=== PATIENT | female | born 1975 | race Caucasian/White ===

== ENCOUNTER 2017-03-01 18:25 | Emergency (ER) | payer OTHER ==
--- NOTE | 2017-03-01 18:48 | ERNOTE ---
Lower Extremity HPI - Narrative Date of Service: 03/01/17 - General Lower Extremities Pain: foot: right, 2nd toe: right, 3rd toe: right, 4th toe: right, 5th toe: right Time Seen by Provider: 03/01/17 18:39 Source: patient Exam Limitations: no limitations - Immun/Allergies/Home Medications Immunizations: IMMUNIZATION HX Immunizations Up to Date Yes History of Influenza Vaccine No Hx Pneumococcal Vaccination No Allergies/Adverse Reactions: Allergies Allergy/AdvReac Type Severity Reaction Status Date / Time No Known Allergies Allergy Verified 03/01/17 18:36 Home Medications: HOME MEDICATIONS Fluticasone Propionate [Flonase] 1 spray NS DAILY 03/01/17 [Last Taken Unknown] - History of Present Illness Narrative: 41-year-old female presents to the emergency room for right foot pain. Patient states that she was at work yesterday when she was sitting down with her legs crossed. Patient states that when she augustin she started to have pain in the ball of her right foot at the base where her toes are. Patient states that she has not taken anything for pain she did work 5 hours today standing. She states that the foot is more swollen and painful when she does step off. She' ll states that there is any increased bruising around the base of her toes. Date (Duration): 03/01/17 Occurred: yesterday Location of Incident: home Method of Injury: Reports: no apparent injury Loss of Consciousness: Reports: no loss of consciousness Modifying Factors - (Improves): Reports: immobilization, rest Modifying Factors - (Worsens): Reports: movement Associated Symptoms: Reports: unable to bear weight Other Injuries: Reports: none Subsequent Symptoms: Denies: sensory loss, numbness, motor loss Review of Systems - Review of Systems Constitutional: Present: no symptoms reported EYE: Present: no symptoms reported ENT: Present: no symptoms reported Respiratory: Present: no symptoms reported Cardiology: Present: no symptoms reported Gastrointestinal/Abdominal: Present: no symptoms reported Genitourinary: Present: no symptoms reported Musculoskeletal: Present: See HPI, joint pain, joint swelling Skin: Present: See HPI, change in color Neurological: Present: no symptoms reported Endocrine: Present: no symptoms reported Hematologic/Lymphatic: Present: no symptoms reported Psych: Present: no symptoms reported All Other Systems: All systems neg except as marked - Patient's Past Medical History Patient History - Medical: No pertinent hx Patient History - Cardiac/Respiratory: No pertinent hx Patient History - Cancer: No Hx of Cancer Patient History - Surgical Procedures: No surgical history Patient History - Other: None LMP (females 10-50): 1 day - Social History Living Situations: home Abuse History: No History of abuse Psych History: No pertinent hx Smoking Status: Current every day smoker Alcohol Use: none Drug Use: none - Immunizations Immunizations Up to Date: Yes Hx Pneumococcal Vaccination: No History of Influenza Vaccine: No Physical Exam - Physical Exam General Appearance: Present: wd/wn, alert, no apparent distress, anxious Head Exam: Present: normal inspection, no evidence of injury Eye Exam: Normal inspection: bilateral, PERRL: bilateral Ears, Nose, Throat: Present: normal ENT inspection, normal pharynx Neck: Present: normal inspection, nontender Respiratory: Present: no respiratory distress, normal breath sounds, no accessory muscle use, chest nontender, lungs clear Cardiovascular/Chest: Present: regular rate, rhythm, no murmur, normal peripheral pulses Gastrointestinal/Abdominal: Present: normal bowel sounds, nontender, nondistended, soft, no organomegaly Back Exam: Present: normal inspection, normal range of motion, no CVA tenderness , no vertebral tenderness Extremity Exam: Present: normal except - - for right foot-, decreased range of motion, pedal edema, bony tenderness, joint redness, joint swelling Neurological Exam: Present: alert, oriented, normal mood/affect, no motor/ sensory deficits, [employer]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 Results and Orders: UA positive for meth - Vital Signs Patient's Vital Signs:: I have reviewed the patient's vital signs. Vital Signs: Vital Signs 03/01/17 18:32 Temperature 36.0 C L Pulse Rate 95 Respiratory 16 Rate Blood Pressure 134/53 O2 Sat by Pulse 100 Oximetry - X-Ray X-Ray #1 X-Ray: foot Interpretation: Reviewed by me X-ray Comments: no acute fx - Progress/Reassessment Chief Complaint: Lower Extremity Pain/ Injury Progress:: Improved Plan - Plan Plan: post op boot follow up with ortho in a few days Departure Clinical Impression: Hyperextension injury - Departure Disposition: Home self-care Condition: Stable Instructions: RICE for Routine Care of Injuries, [id number], Foot Sprain Additional Instructions: Continue any previous home medications. She may take [id number] pain medications as needed for pain. Follow-up with orthopedist in the next few days if pain continues. Return to the emergency room appendage becomes cool to touch her pain increases. Referrals: Junito Jacobs, PAC [[facility]] -
[2017-03-01 19:44] LABS: Cocaine Ur Negative (NEGATIVE); Urine Barbiturate Negative (NEGATIVE); Urine Benzodiazepines Negative (NEGATIVE); Urine Opiates Negative (NEGATIVE); Urine PCP Negative (NEGATIVE); Urine THC Negative (NEGATIVE)
[2017-03-01] MEDS ORDERED: KETOROLAC TROMETHAMINE 60 MG/2 ML VIAL IM ONE ×2 (20:04→20:10)
[2017-03-01 20:18] VITALS: BP 150/80
== END 2017-03-01 20:23 | disposition home or self-care (01) ==
LOC: ER 18:25
PROC: 2W3QX1Z Immobilization of Right Lower Leg using Splint (ICD-10-PCS; principal; 2017-03-01)
DX: S99.821A Other specified injuries of right foot, initial encounter (principal); X58.XXXA Exposure to other specified factors, initial encounter; Y93.89 Activity, other specified; Y92.9 Unspecified place or not applicable; Y99.0 Civilian activity done for income or pay; F17.200 Nicotine dependence, unspecified, uncomplicated